=== PATIENT | female | born 1955 | race Hispanic/Latino ===

== ENCOUNTER → 2017-10-26 | Outpatient (CLI) | payer BC | END | disposition home or self-care (01) | LOC: LAB.O 08:26 | PROVIDERS: ATTEND General Practice | DX: I10 Essential (primary) hypertension (principal); E11.9 Type 2 diabetes mellitus without complications ==

== ENCOUNTER → 2018-02-28 | Outpatient (CLI) | payer BC ==
--- NOTE | 2018-03-03 11:22 | MAM ---
EXAM DESCRIPTION: 3D Screening BILATERAL : Digital Mammography. CLINICAL HISTORY: 62 years Female SCREENING . No complaints. No family history of breast cancer. Postmenopausal. No HRT. COMPARISON: Baseline study at this facility. No prior reports available. TECHNIQUE: Bilateral CC and MLO projection full-field images, 3-D tomosynthesis digital mammographic technique. Also bilateral synthesized CC/ MLO full-field images. CAD not utilized. FINDINGS: The breast parenchymal density pattern is: Scattered areas of fibroglandular density. No skin thickening or nipple retraction bilateral axillary lymph nodes.. Bilateral coarse calcifications and bilateral solitary microcalcifications. Focal asymmetry at the 630-700 clock position 3 cm from the right nipple. No focal, stellate mass or density, focal asymmetry , and no suspicious microcalcifications left breast. Stable mammograms compared to prior study, taking into account differences in mammographic technique IMPRESSION: BI-RADS CATEGORY: 0 - INCOMPLETE- Need additional imaging evaluation. FOLLOW-UP: Recall for additional imaging: Bilateral 3-D tomosynthesis full field LM images. Targeted right breast ultrasound of the region of interest, if indicated by diagnostic images.. Written communication concerning the IMPRESSION and Follow-up, will be mailed to the patient and referring health care provider. Electronically signed by: Felix Cano MD 03/03/2018 11:21 AM CDT
== END ==
LOC: MAMMO 10:00
PROVIDERS: ATTEND General Practice
DX: Z12.31 Encounter for screening mammogram for malignant neoplasm of breast (principal)